=== PATIENT | female | born 1985 | race Two or more races ===

== ENCOUNTER 2019-04-27 16:06 | Emergency (ER) | payer SELFPAY ==
[~2019-04-27] VITALS: Ht 165.1 cm; Wt 71.7 kg
[2019-04-27 16:36] VITALS: BP 91/56
[2019-04-27] MEDS ORDERED: ACETAMINOPHEN 325 MG TAB PO ONE (17:15)
[2019-04-27] MEDS ORDERED: cefTRIAXone SOD 1,000 MG VL IM ONE (17:15)
== END 2019-04-27 17:46 | disposition home or self-care (01) ==
LOC: ER 16:06
DX: O26.892 Other specified pregnancy related conditions, second trimester (principal); J02.9 Acute pharyngitis, unspecified; J06.9 Acute upper respiratory infection, unspecified; Z3A.24 24 weeks gestation of pregnancy
CPT/HCPCS: 81002; 96372; 99283; J0696